=== PATIENT | female | born 1955 | race Caucasian/White ===

== ENCOUNTER 2016-05-14 14:28 | Emergency (ER) | payer MEDICAID ==
[~2016-05-14] VITALS: Ht 157.5 cm; Wt 75.0 kg
[2016-05-14 15:30] VITALS: BP 121/69
[2016-05-14] MEDS ORDERED: ONDANSETRON 4MG ODT PO ONE (16:00)
== END 2016-05-14 16:56 | disposition home or self-care (01) ==
LOC: ER 14:29
DX: S00.93XA Contusion of unspecified part of head, initial encounter (principal); Z98.890 Other specified postprocedural states; W20.8XXA Other cause of strike by thrown, projected or falling object, initial encounter; Y93.89 Activity, other specified; Y92.89 Other specified places as the place of occurrence of the external cause; Y99.8 Other external cause status
CPT/HCPCS: 99283; Q0162; Z7610